=== PATIENT | male | born 1965 | race Caucasian/White ===

== ENCOUNTER → 2018-03-04 09:25 | Outpatient (REF) | payer MEDICARE, SELFPAY ==
[2018-03-04 21:16] LABS: Bacteria Few HPF (Negative); C & S Indicated? No; Casts 0-2 Fine Granular LPF (Negative); Crystals Negative HPF (Negative); Epithelial Cells Rare HPF (Negative); Mucus Moderate (Negative); Other Cells Rare Transitional (Negative); WBC 0-2 HPF (0-5)
[2018-03-07 17:21] LABS: Amphetamine Negative ng/mL (Cutoff: 25); Amphetamines Interpretation Negative.; MDA (Ecstasy Metabolite) Negative ng/mL (Cutoff: 25); MDMA (Ecstasy) Negative ng/mL (Cutoff: 25); Methamphetamine Negative ng/mL (Cutoff: 25); Phentermine Negative ng/mL (Cutoff: 25); Pseudoephedrine/Ephedrine Negative ng/mL (Cutoff: 25)
== END ==
LOC: NCHCN 09:25
PROVIDERS: PCP Family Medicine; Visit Provider Family Medicine
DX: R82.99 Other abnormal findings in urine (principal); G89.4 Chronic pain syndrome; F15.20 Other stimulant dependence, uncomplicated
CPT/HCPCS: 80324; 81015

== ENCOUNTER 2019-02-03 09:12 | Outpatient (REF) | payer MEDICARE, SELFPAY ==
[2019-02-03 22:18] LABS: Glucose 90 mg/dL (70-100)
[2019-02-05 10:16] LABS: PSA, Screening 1.2 ng/ml (0-3.5)
[2019-02-05 11:13] LABS: Lyme Ab w Rflx to Lyme Confirm Negative
[2019-02-06 15:12] LABS: Testosterone, Free 6.62 ng/dL (4.06-15.6); Testosterone, Total 473 ng/dL (240-950)
== END 2019-02-03 09:32 ==
LOC: NCHCN 09:12
PROVIDERS: PCP Family Medicine; Visit Provider Family Medicine
DX: Z79.891 Long term (current) use of opiate analgesic (principal); Z12.5 Encounter for screening for malignant neoplasm of prostate; W57.XXXA Bitten or stung by nonvenomous insect and other nonvenomous arthropods, initial encounter; T14.8XXA Other injury of unspecified body region, initial encounter
CPT/HCPCS: 82947; 84153; 84402; 84403; 86618